=== PATIENT | female | born 1965 | race African-American/Black ===

== ENCOUNTER 2021-09-21 20:11 | Emergency (ER) | payer OTHER ==
[2021-09-21 20:20] VITALS: TEMP 98.2; BMI 24.0
[2021-09-21] MEDS ORDERED: ACETAMINOPHEN 325 MG TABLET (FP) PO ONE (21:16)
[2021-09-21] MEDS ORDERED: ACETAMINOPHEN 325 MG TABLET (FP) ONE (21:19)
[2021-09-21 22:45] VITALS: BP 116/74; PULSE 89
== END 2021-09-21 23:25 | disposition home or self-care (01) ==
LOC: JER 20:11
DX: S09.90XA Unspecified injury of head, initial encounter (principal); M54.2 Cervicalgia; W01.198A Fall on same level from slipping, tripping and stumbling with subsequent striking against other object, initial encounter; Y92.002 Bathroom of unspecified non-institutional (private) residence as the place of occurrence of the external cause
CPT/HCPCS: 70450-TC; 72125-TC; 99284-25